=== PATIENT | female | born 1975 | race Caucasian/White ===

== ENCOUNTER 2019-04-22 07:58 | Day surgery (SDC) | payer OTHER ==
[~2019-04-22] VITALS: Ht 160 cm; Wt 158.8 kg
[2019-04-22] MEDS ORDERED: LOSA25TA43 PO (09:32)
[2019-04-22] MEDS ORDERED: METF1000 PO (09:32)
[2019-04-22] MEDS ORDERED: LEVO0.179 PO (09:32)
[2019-04-22] MEDS ORDERED: BUPIVACAINE-MPF 0.25% 30 ML VIAL INJ ONE (10:21)
[2019-04-22] MEDS ORDERED: PROPOFOL 200 MG/20 ML VIAL IV ONE (10:30)
[2019-04-22] MEDS ORDERED: fentaNYL 0.05 MG/ML VIAL ONE (10:30)
[2019-04-22] MEDS ORDERED: MIDAZOLAM 2 MG/2 ML VIAL ONE (10:30)
[2019-04-22] MEDS ORDERED: SUCCINYLCHOLINE CHLORIDE 200 MG/10 ML VIAL IVP ONE (10:30)
[2019-04-22] MEDS ORDERED: SEVOFLURANE 250 ML BTL INH ONE (10:30)
[2019-04-22] MEDS ORDERED: ONDANSETRON 4 MG/2 ML VIAL IVP PRN ×2 (11:10→11:25)
[2019-04-22] MEDS ORDERED: HYDROmorphone 1 MG/ML AMP IVP PRN ×2 (11:10→11:25)
[2019-04-22] MEDS ORDERED: HYDROcodone/APAP 5/325 MG 1 TAB TAB PO PRN (11:10)
[2019-04-22] MEDS ORDERED: MORPHINE SULFATE 4 MG/ML SYR IV PRN (11:10)
[2019-04-22] MEDS ORDERED: MORPHINE SULFATE 2 MG/ML SYR IVP PRN (11:10)
== END 2019-04-22 11:54 | disposition home or self-care (01) ==
LOC: MDS 07:58 → MMU 08:00 → MDS 11:54
PROVIDERS: ATTEND Surgery
DX: N61.1 Abscess of the breast and nipple (principal); N64.52 Nipple discharge; I10 Essential (primary) hypertension; E66.01 Morbid (severe) obesity due to excess calories; E11.9 Type 2 diabetes mellitus without complications; K21.9 Gastro-esophageal reflux disease without esophagitis; Z68.44 Body mass index [BMI] 60.0-69.9, adult
CPT/HCPCS: 19120; 71045; 76641; 82948; 87070; 87075; 87205; J0330; J0690; J2704; J3490; J7030; J7060; Q0092; 88304